=== PATIENT | female | born 1960 | race Caucasian/White ===

== ENCOUNTER 2016-07-31 20:51 | Emergency (ER) | payer OTHER ==
[~2016-07-31] VITALS: Ht 167.6 cm; Wt 59.0 kg
[2016-07-31 21:19] VITALS: BP_SYST 146
[2016-07-31] MEDS ORDERED: DIPHENHYDRAMINE INJ 50 MG/ML VIAL IM ONE (21:45)
[2016-07-31] MEDS ORDERED: KETOROLAC TROMETHAMINE 30 MG VIAL IM ONE (21:45)
[2016-07-31 22:34] VITALS: BP_SYST 146
== END 2016-07-31 22:34 | disposition home or self-care (01) ==
LOC: SED 20:51
DX: R51 Headache (principal); K21.9 Gastro-esophageal reflux disease without esophagitis; Z88.5 Allergy status to narcotic agent
CPT/HCPCS: 96372; 99284; J1200; J1885